=== PATIENT | male | born 1985 | race Caucasian/White ===

== ENCOUNTER 2023-01-13 11:04 | Emergency (ER) | payer OTHER ==
[2023-01-13 11:41] LABS: Absolute Lymphocytes (CBC) 2.5 K/uL (0.7-4.9); Hematocrit 44.6 % (39.6-49.0); Lymphocytes % 26.9 % (15.3-44.8); MCV 86.4 fL (80-100); MPV 7.2 fL (7.6-11.3); Platelets 295 thou/uL (152-406); RBC Red Blood Cell Count 5.16 M/uL (4.33-5.43)
[2023-01-13 11:49] LABS: Protime INR 0.96
[2023-01-13 12:01] LABS: Albumin 4.3 g/dL (3.4-5.0); Bilirubin Direct 0.2 mg/dL (0-0.2); Bilirubin Indirect, Calculated 0.6 mg/dL (0.2-0.8); Bilirubin Total 0.8 mg/dL (0.2-1.0); Magnesium 2.5 mg/dL (1.6-2.4); Protein, Total 8.5 g/dL (6.4-8.2); Troponin High Sensitivity 4.9 pg/mL (<58.9)
--- NOTE | 2023-01-13 12:18 | RAD REPORT ---
EXAM DESCRIPTION: CT - Chest For Pe Angio - 01/13/2023 11:53 am CLINICAL HISTORY: PAIN COMPARISON: No comparisons TECHNIQUE: Thin axial CT images of the chest were obtained following administration of 100 mL Isovue 370 IV contrast. Multiplanar reconstructions, and maximum intensity projection reconstructions were generated and reviewed. Exam utilizes a protocol for optimal evaluation of pulmonary arterial tree. All CT scans are performed using dose optimization technique as appropriate and may include automated exposure control or mA/KV adjustment according to patient size. FINDINGS: Pulmonary arteries are normal. No emboli or other suspicious finding. Variant anatomy of the aortic arch, with the left vertebral artery arising directly from the arch as the third vessel. No aneurysmal dilation or dissection of the thoracic aorta or the included upper ab dominal aorta. No mass or infiltrate in the lung parenchyma. No pleural thickening or pleural effusion. No pneumotho rax. No abnormal mediastinal or hilar masses or lymphadenopathy seen. No chest wall mass or abnormal axill iary lymphadenopathy. Extrarenal right renal pelvis. IMPRESSION: No evidence of acute central pulmonary emboli. No other acute findings in the chest.
--- NOTE | 2023-01-13 12:24 | ER ---
Nurse's Notes [facility] Name: Charles Handley Jr Age: 37 yrs Sex: Male : 1985 Arrival Date: 01/13/2023 Time: 11:04 Bed 4 Private MD: Diagnosis: Chest pain, unspecified Presentation: 01/13 11:17 Chief complaint: Patient states: "I started having left shoulder blade pain yesterday. mb9 This morning I started having left sided chest pain that is constant and a dull ache. If I breathe or move the wrong way, its worse.". Coronavirus screen: At this time, the client does not indicate any symptoms associated with coronavirus-19. Ebola Screen: No symptoms or risks identified at this time. Initial Sepsis Screen: Does the patient meet any 2 criteria? No. Patient's initial sepsis screen is negative. Does the patient have a suspected source of infection? No. Patient's initial sepsis screen is negative. Risk Assessment: Do you want to hurt yourself or someone else? Patient reports no desire to harm self or others. Onset of symptoms was January 13, 2023. 11:17 Acuity: SAILAJA 3 mb9 11:17 Method Of Arrival: Ambulatory mb9 Triage Assessment: 11:25 General: Appears in no apparent distress. Behavior is calm, cooperative. Pain: mb9 Complains of pain in chest Pain radiates to back Quality of pain is described as aching, dull. EENT: No signs and/or symptoms were reported regarding the EENT system. Neuro: Level of Consciousness is awake, alert, obeys commands, Oriented to person, place, time, situation, Appropriate for age. Cardiovascular: Reports chest pain, Heart tones S1 S2 present Patient's skin is warm and dry. Respiratory: Airway is patent Respiratory effort is even, unlabored, Respiratory pattern is regular, symmetrical. GI: Abdomen is round non-distended. : No signs and/or symptoms were reported regarding the genitourinary system. Derm: Skin is pink, warm \\T\\ dry. Historical: - Allergies: 11:19 No Known Allergies; mb9 - Home Meds: : atorvastatin 40 mg oral tablet [Active]; losartan 25 mg oral tablet [Active]; mb9 - PMHx: 11: Hypertensive disorder; Hypercholesterolemia; mb9 - PSHx: 11:19 Appendectomy; mb9 - Immunization history:: Adult Immunizations up to date. - Social history:: Smoking status: Patient denies any tobacco usage or history of. Screenin:36 [facility] ED Fall Risk Assessment (Adult) History of falling in the last 3 months, tm6 including since admission No falls in past 3 months (0 pts). Abuse screen: Denies threats or abuse. Denies injuries from another. Nutritional screening: No deficits noted. Tuberculosis screening: No symptoms or risk factors identified. Assessment: 11:34 Pain: Complains of pain in anterior aspect of left upper chest, diaphragm, left lateral tm6 posterior chest and left breast Pain currently is 3 out of 10 on a pain scale. at worst was 8 out of 10 on a pain scale. Quality of pain is described as dull, sharp, Pain began 1 day ago. Pain: Aggravated by increased activity, deep breathing. Neuro: Level of Consciousness is awake, alert, obeys commands, Oriented to person, place, time, situation. Cardiovascular: Capillary refill < 3 seconds Patient's skin is warm and dry. Rhythm is sinus rhythm. Respiratory: Airway is patent Respiratory effort is even, unlabored, Respiratory pattern is regular, symmetrical. GI: Abdomen is round non-distended. : No signs and/or symptoms were reported regarding the genitourinary system. EENT: No signs and/or symptoms were reported regarding the EENT system. Derm: No signs and/or symptoms reported regarding the dermatologic system. Musculoskeletal: No signs and/or symptoms reported regarding the musculoskeletal system. 12:18 Reassessment: Patient appears in no apparent distress at this time. No changes from tm6 previously documented assessment. Patient and/or family updated on plan of care and expected duration. Pain level reassessed. Patient is alert, oriented x 3, equal unlabored respirations, skin warm/dry/pink. Vital Signs: 11:17 BP 163 / 103; Pulse 73; Resp 18; Temp 97.4; Pulse Ox 100% on R/A; Weight 108.86 kg; mb9 Height 5 ft. 8 in. ; 11:34 BP 162 / 104; Pulse 77; Resp 14; Pulse Ox 100% on R/A; Pain 3/10; tm6 12:18 BP 159 / 90; Pulse 79; Pulse Ox 99% on R/A; tm6 11:17 Body Mass Index 36.49 (108.86 kg, 172.72 cm) mb9 11:34 Pain Scale: Adult tm6 Vitals: 11:34 Cardiac Rhythm Assessment Regular Sinus rhythm. tm6 ED Course: 11:15 Patient arrived in ED. ll1 11:16 Sandy Short MD is Attending Physician. sp3 11:19 Triage completed. mb9 11:19 Arm band placed on. mb9 11:25 EKG done, by ED staff, reviewed by Sandy Short MD. mb9 11:27 Tricia Ibarra, RN is Primary Nurse. tm6 11:36 Patient has correct armband on for positive identification. Placed in gown. Bed in low tm6 position. Call light in reach. Side rails up X2. Provided Education on: VS monitoring. Client placed on continuous cardiac and pulse oximetry monitoring. NIBP monitoring applied. senior communications engineer on. Door closed. Noise minimized. Lights dimmed. Warm blanket given. 11:36 Basic Metabolic Panel Sent. em1 11:36 CBC with Diff Sent. em1 11:36 LFT's Sent. em1 11:36 Magnesium Sent. em1 11:36 NT PRO-BNP Sent. em1 11:36 PT-INR Sent. em1 11:36 Troponin HS Sent. em1 11:36 Initial lab(s) drawn, by me, sent to lab. Inserted saline lock: 20 gauge in right em1 antecubital area, using aseptic technique. Blood collected. 11:55 CT Chest For PE Angio In Process Unspecified. EDMS 12:30 No provider procedures requiring assistance completed. IV discontinued, intact, tm6 bleeding controlled, No redness/swelling at site. Pressure dressing applied. Patient maintains SpO2 saturation greater than 95% on room air. Administered Medications: No medications were administered Medication: 12:31 VIS not applicable for this client. tm6 Outcome: 12:23 Discharge ordered by . sp3 12:30 Discharged to home ambulatory, tm6 12:30 Condition: stable 12:30 Discharge instructions given to patient, Instructed on discharge instructions, follow up and referral plans. medication usage, Demonstrated understanding of instructions, follow-up care, medications, Prescriptions given X 1, 12:31 Patient left the ED. tm6 Signatures: Dispatcher [employer] EDHaile Adair em1 Meg Davis, RN RN ll1 Sandy Short MD MD sp3 Olga, Rebecca Sampson, RN RN mb9 Tricia Ibarra RN RN tm6
--- NOTE | 2023-01-13 12:24 | EDPHYS ---
Physician Documentation [facility] Name: Charles Handley Jr Age: 37 yrs Sex: Male : 1985 Arrival Date: 01/13/2023 Time: 11:04 Bed 4 Private MD: ED Physician Sandy Short HPI: 01/13 11:29 This 37 yrs old Male presents to ER via Ambulatory with complaints of Chest Pain. sp3 11:29 37-year-old male with history of hypertension and hyperlipidemia presents with left sp3 scapular pain rating around to the left chest wall started over the weekend approximately 4 days ago. Patient said pain has been off and on and he initially felt like it was muscular so he took some OTC NSAIDs. Pain is persisted and so he now presents for further evaluation. He denies headache, fever, URI symptoms, neck pain, right-sided chest pain, low back pain, abdominal pain, nausea, vomiting, diarrhea, syncope, near syncope, left arm pain, neurological symptoms, or any other signs or symptoms on ROS at this time.. Historical: - Allergies: 11:19 No Known Allergies; mb9 - Home Meds: 11:19 atorvastatin 40 mg oral tablet [Active]; losartan 25 mg oral tablet [Active]; mb9 - PMHx: 11:19 Hypertensive disorder; Hypercholesterolemia; mb9 - PSHx: 11:19 Appendectomy; mb9 - Immunization history:: Adult Immunizations up to date. - Social history:: Smoking status: Patient denies any tobacco usage or history of. ROS: 11:30 Constitutional: Negative for fever, chills, and weight loss, Eyes: Negative for injury, sp3 pain, redness, and discharge, ENT: Negative for injury, pain, and discharge, Neck: Negative for injury, pain, and swelling, Respiratory: Negative for shortness of breath, cough, wheezing, and pleuritic chest pain, Abdomen/GI: Negative for abdominal pain, nausea, vomiting, diarrhea, and constipation, Back: Negative for injury and pain, MS/Extremity: Negative for injury and deformity, Skin: Negative for injury, rash, and discoloration, Neuro: Negative for headache, weakness, numbness, tingling, and seizure, Psych: Negative for depression, anxiety, suicide ideation, homicidal ideation, and hallucinations, Allergy/Immunology: Negative for hives, rash, and allergies, Endocrine: Negative for neck swelling, polydipsia, polyuria, polyphagia, and marked weight changes, Hematologic/Lymphatic: Negative for swollen nodes, abnormal bleeding, and unusual bruising, 11:30 All other systems are negative, Exam: 11:31 Constitutional: This is a well developed, well nourished patient who is awake, alert, sp3 and in no acute distress. Head/Face: Normocephalic, atraumatic. Eyes: Pupils equal round and reactive to light, extra-ocular motions intact. Lids and lashes normal. Conjunctiva and sclera are non-icteric and not injected. Cornea within normal limits. Periorbital areas with no swelling, redness, or edema. ENT: Nares patent. No nasal discharge, no septal abnormalities noted. External auditory canals are clear. Oropharynx with no redness, swelling, or masses, exudates, or evidence of obstruction, uvula midline. Mucous membranes moist. Neck: Trachea midline, no thyromegaly or masses palpated, and no cervical lymphadenopathy. Supple, full range of motion without nuchal rigidity, or vertebral point tenderness. No Meningismus. Chest/axilla: Normal chest wall appearance and motion. Nontender with no deformity. No lesions are appreciated. Cardiovascular: Regular rate and rhythm with a normal S1 and S2. No gallops, murmurs, or rubs. Normal PMI, no JVD. No pulse deficits. Respiratory: Lungs have equal breath sounds bilaterally, clear to auscultation and percussion. No rales, rhonchi or wheezes noted. No increased work of breathing, no retractions or nasal flaring. Abdomen/GI: Soft, non-tender, with normal bowel sounds. No distension or tympany. No guarding or rebound. No evidence of tenderness throughout. Back: No spinal tenderness. No costovertebral tenderness. Full range of motion. Skin: Warm, dry with normal turgor. Normal color with no rashes, no lesions, and no evidence of cellulitis. MS/ Extremity: Pulses equal, no cyanosis. Neurovascular intact. Full, normal range of motion. Neuro: Awake and alert, GCS 15, oriented to person, place, time, and situation. Cranial nerves II-XII grossly intact. Motor strength 5/5 in all extremities. Sensory grossly intact. Cerebellar exam normal. Normal gait. Psych: Awake, alert, with orientation to person, place and time. Behavior, mood, and affect are within normal limits. 11:31 ECG was reviewed by the Attending Physician. EKG demonstrates normal sinus rhythm at 71 bpm with normal intervals, normal QRS, normal axis, normal ST/T-segment's without evidence of acute ischemia. Vital Signs: 11:17 BP 163 / 103; Pulse 73; Resp 18; Temp 97.4; Pulse Ox 100% on R/A; Weight 108.86 kg; mb9 Height 5 ft. 8 in. ; 11:34 BP 162 / 104; Pulse 77; Resp 14; Pulse Ox 100% on R/A; Pain 3/10; tm6 12:18 BP 159 / 90; Pulse 79; Pulse Ox 99% on R/A; tm6 11:17 Body Mass Index 36.49 (108.86 kg, 172.72 cm) mb9 11:34 Pain Scale: Adult tm6 MDM: 11:20 Patient medically screened. sp3 11:31 Data reviewed: vital signs, nurses notes, lab test result(s), EKG, radiologic studies. sp3 ED course: 37-year-old male with left-sided chest pain. Differential diagnosis includes musculoskeletal pain, pleurisy, pulmonary embolism and to much lesser degree ACS and/or aortic pathology including dissection or aneurysm. Also consider GERD or other GI related source. Work-up will include EKG which is normal, laboratory values and CT PE protocol of the chest. If work-up is negative, we will safely discharge patient home with PCP follow-up.. 12:20 ED course: Full work-up is negative including CT chest. All critical pathology is ruled sp3 out. We will safely discharge patient home at this time on diclofenac p.o.. 01/13 11:21 Order name: Basic Metabolic Panel; Complete Time: 12:02 sp3 01/13 11:21 Order name: CBC with Diff; Complete Time: 12:02 sp3 01/13 11:21 Order name: LFT's; Complete Time: 12:02 sp3 01/13 11:21 Order name: Magnesium; Complete Time: 12:02 sp3 01/13 11:21 Order name: NT PRO-BNP; Complete Time: 12:02 sp3 01/13 11:21 Order name: PT-INR; Complete Time: 12:02 sp3 01/13 11:21 Order name: Troponin HS; Complete Time: 12:02 sp3 01/13 11:21 Order name: CT Chest For PE Angio; Complete Time: 12:20 sp3 01/13 11:21 Order name: EKG; Complete Time: 11:22 sp3 01/13 11:21 Order name: Cardiac monitoring; Complete Time: 11:28 sp3 01/13 11:21 Order name: EKG - Nurse/Tech; Complete Time: 11:27 sp3 01/13 11:21 Order name: IV Saline Lock; Complete Time: 11:36 sp3 01/13 11:21 Order name: Labs collected and sent; Complete Time: 11:36 sp3 01/13 11:21 Order name: O2 Sat Monitoring; Complete Time: :28 sp3 Administered Medications: No medications were administered Disposition Summary: 01/13/23 12:23 Discharge Ordered Notes: Location: Home sp3 Condition: Stable sp3 Diagnosis - Chest pain, unspecified sp3 Followup: sp3 - With: Private Physician - When: Upon discharge from the Emergency Department - Reason: Continuance of care Discharge Instructions: - Discharge Summary Sheet sp3 - Nonspecific Chest Pain, Adult sp3 Forms: - Medication Reconciliation Form sp3 - Thank You Letter sp3 - Antibiotic Education sp3 - Prescription Opioid Use sp3 - Patient Portal Instructions sp3 - Leadership Thank You Letter sp3 Prescriptions: - Diclofenac Sodium 75 mg Oral Tablet Sustained Release - take 1 tablet ORAL route 2 times per day; 30 tablet; Refills: 0, Product sp3 Selection Permitted Signatures: Dispatcher [employer] Sandy Wilkins MD MD sp3 Rebecca Espinoza RN RN mb9
[2023-01-13 12:37] VITALS: TEMP 97.4
[2023-01-13 12:39] VITALS: BP 159/90; O2SAT 99
== END 2023-01-13 12:31 | disposition home or self-care (01) ==
LOC: ER 11:04
DX: R07.9 Chest pain, unspecified (principal); I10 Essential (primary) hypertension; E78.5 Hyperlipidemia, unspecified
CPT/HCPCS: 93005; 85025; 80048; 36415; 83735; 85610; 80076; 84484; 83880; 71275; 99285; Q9967